=== PATIENT | female | born 1940 | race Two or more races ===

== ENCOUNTER 2024-05-13 17:17 | Inpatient (IN) | payer OTHER ==
[~2024-05-13] VITALS: Ht 165.1 cm; Wt 63.5 kg
[2024-05-13 17:23] VITALS: BP 138/60; PULSE 72; RESP 14; TEMP 97.8; O2SAT 97
[2024-05-13] MEDS ORDERED: cefTRIAXone 1,000 MG VIAL ONE (17:44)
[2024-05-13] MEDS: cefTRIAXone 1,000 MG in DEXT 5% MINI-BAG PLUS 50 ML IV ONE (18:12)
[2024-05-13 18:15] LABS: BILIRUBIN,URINE NEGATIVE (NEGATIVE); BLOOD, URINE NEGATIVE (NEGATIVE); COLOR,URINE YELLOW (YELLOW); LEUKOCYTE ESTERASE ,URINE 3+ (NEGATIVE); NITRITE, URINE POSITIVE (NEGATIVE); PROTEIN,URINE NEGATIVE (NEGATIVE); UGLUCOSE NEGATIVE (NEGATIVE); UROBILINOGEN,URINE 0.2 EU/dL (0.2 - 1)
[2024-05-13 18:16] LABS: BASOPHILS % (AUTO) 0.4 % (0.0-2.0); EOSINOPHILS # (AUTO) 0.1 K/uL (0-0.4); EOSINOPHILS % (AUTO) 1.1 % (0.0-4.0); HEMOGLOBIN 13.1 g/dL (12.0-16.0); LYMPHOCYTES # (AUTO) 2.1 K/uL (2.5-16.5); LYMPHOCYTES % (AUTO) 30.4 % (20.5-51.1); MEAN CORPUSCULAR HEMOGLOBIN 30 pg (27-31); MEAN CORPUSCULAR HGB CONC 34 g/dL (33-37); MEAN CORPUSCULAR VOLUME 90.2 fL (80-94); MONOCYTES # (AUTO) 0.5 K/uL (0.8-1.0); MONOCYTES % (AUTO) 7.1 % (1.7-9.3); NEUTROPHILS # (AUTO) 4.2 K/uL (1.8-7.7); PLATELET COUNT (AUTO) 249 K/uL (140-450); RED BLOOD CELL COUNT(AUTO) 4.32 MIL/uL (4.20-5.40); RED CELL DISTRIBUTION WIDTH 13.3 % (11.6-13.7); WHITE BLOOD COUNT (AUTO) 6.9 K/uL (4.8-10.8)
[2024-05-13 18:17] LABS: APPEARANCE,URINE HAZY (CLEAR)
[2024-05-13 18:40] LABS: ANION GAP 12.7 (8-16); CARBON DIOXIDE 26.7 mmol/L (21-32); CHLORIDE 103 mmol/L (98-107); CREATININE 1.5 mg/dL (0.6-1.3); GLUCOSE 219 mg/dL (74-106); POTASSIUM 4.4 mmol/L (3.5-5.1); SODIUM SERUM 138 mmol/L (136-145); UREA NITROGEN, BLOOD 30 mg/dL (7-18)
[2024-05-13 18:49] LABS: LACTIC ACID 1.4 mmol/L (0.4-2.0)
[2024-05-13 18:51] LABS: FLU A ANTIGEN negative (NEGATIVE); FLU B ANTIGEN NEGATIVE (NEGATIVE)
[2024-05-13 19:06] LABS: BACTERIA,URINE 4+ /HPF (None Seen); MUCUS,URINE 2+ /LPF (None Seen); RBC,URINE 0-5 /HPF (0-5); SQUAMOUS EPITHELIAL CELL,UR 4-10 (MOD) /LPF (0-3 (FEW)); WBC,URINE 16-25 (MOD) /HPF (0-5)
[2024-05-13] MEDS ORDERED: AMLO10TA PO (20:05)
[2024-05-13] MEDS ORDERED: SIMV-372 PO (20:05)
[2024-05-13] MEDS ORDERED: HYDR-1098 PO (20:05)
[2024-05-13] MEDS ORDERED: LOSA-272 PO (20:05)
[2024-05-13] MEDS ORDERED: XAR10 PO (20:05)
[2024-05-13] MEDS ORDERED: ESCI10TA PO (20:05)
[2024-05-13] MEDS ORDERED: SLIDE SUBQ (20:10)
[2024-05-13] MEDS ORDERED: INSU-1329 SC (20:10)
[2024-05-13] MEDS: DEXT 5% / NACL 0.9% 500 ML IV ONE (21:07)
[2024-05-13] MEDS ORDERED: ACETAMINOPHEN 325 MG TAB PO PRN (21:10)
[2024-05-13] MEDS ORDERED: ONDANSETRON 4 MG/2 ML VIAL IVP PRN (21:10)
[2024-05-13] MEDS ORDERED: POTASSIUM CHLORIDE 10 MEQ TABER PO PRN (21:10)
[2024-05-13] MEDS ORDERED: MAG SULF 2000 MG/WATER PREMIX 50 ML IV PRN (21:10)
[2024-05-13] MEDS: NACL 0.9% 1,000 ML IV SCH (21:15)
[2024-05-13] MEDS ORDERED: DEXTROSE 50% 50 ML SYR IVP PRN (21:15)
[2024-05-13 22:07] VITALS: PULSE 86; RESP 18; O2SAT 97
[2024-05-13 22:26] LABS: INR 0.98 (0.8-1.2); PARTIAL THROMBOPLASTIN TIME 27.2 secs (22-35.6); PROTHROMBIN TIME 10.3 secs (10.8-13.4)
[2024-05-13 23:23] LABS: CHOL/HDL RATIO 2.1 (1-4.5); FREE T4 (FREE THYROXINE) 1.07 ng/dL (0.76-1.46); PHOSPHORUS 3.5 mg/dL (2.5-4.9); THYROID STIMULATING HORMONE 2.34 uIU/mL (0.34-3.74)
[2024-05-14] VITALS: BP 140/56; PULSE 61; PULSE 65; RESP 18; TEMP 98; O2SAT 95
[2024-05-14 04:00] VITALS: BP 152/64; PULSE 59; PULSE 80; RESP 18; TEMP 97.6; O2SAT 96
[2024-05-14 06:55] LABS: BASOPHILS % (AUTO) 0.5 % (0.0-2.0); EOSINOPHILS # (AUTO) 0.1 K/uL (0-0.4); EOSINOPHILS % (AUTO) 2.7 % (0.0-4.0); HEMATOCRIT 36.2 % (36-48); HEMOGLOBIN 12.2 g/dL (12.0-16.0); LYMPHOCYTES # (AUTO) 1.4 K/uL (2.5-16.5); LYMPHOCYTES % (AUTO) 32.5 % (20.5-51.1); MEAN CORPUSCULAR HEMOGLOBIN 30 pg (27-31); MEAN CORPUSCULAR HGB CONC 34 g/dL (33-37); MEAN CORPUSCULAR VOLUME 89.7 fL (80-94); MONOCYTES # (AUTO) 0.5 K/uL (0.8-1.0); MONOCYTES % (AUTO) 10.2 % (1.7-9.3); NEUTROPHILS # (AUTO) 2.4 K/uL (1.8-7.7); NEUTROPHILS % (AUTO) 54.1 % (42.2-75.2); PLATELET COUNT (AUTO) 219 K/uL (140-450); RED BLOOD CELL COUNT(AUTO) 4.04 MIL/uL (4.20-5.40); RED CELL DISTRIBUTION WIDTH 13.3 % (11.6-13.7); WHITE BLOOD COUNT (AUTO) 4.4 K/uL (4.8-10.8)
[2024-05-14 07:24] LABS: ANION GAP 13.6 (8-16); CALCIUM 8.3 mg/dL (8.5-10.1); CARBON DIOXIDE 22.3 mmol/L (21-32); CHLORIDE 106 mmol/L (98-107); CREATININE 1.2 mg/dL (0.6-1.3); GLUCOSE 186 mg/dL (74-106); POTASSIUM 3.9 mmol/L (3.5-5.1); SODIUM SERUM 138 mmol/L (136-145); UREA NITROGEN, BLOOD 23 mg/dL (7-18)
[2024-05-14 07:30] LABS: MAGNESIUM 2.3 mg/dL (1.8-2.4); PHOSPHORUS 3.5 mg/dL (2.5-4.9)
[2024-05-14] MEDS: BLOOD GLUCOSE MONITORING 1 DEV DEV FS SCH (07:30)
[2024-05-14 08:00] VITALS: BP 150/60; PULSE 57; PULSE 64; PULSE 68; RESP 16; RESP 20; TEMP 97.4; O2SAT 98; O2SAT 99
[2024-05-14] MEDS: hydrALAZINE 25 MG TAB PO SCH (09:00)
[2024-05-14] MEDS: DOCUSATE SODIUM 100 MG GELCAP PO SCH (09:00)
[2024-05-14] MEDS: amLODIPine 5 MG TAB PO SCH (09:00)
[2024-05-14] MEDS: ESCITALOPRAM 20 MG TAB PO SCH (09:00)
[2024-05-14] MEDS: LOSARTAN 50 MG TAB PO SCH (09:00)
[2024-05-14] MEDS: PANTOPRAZOLE 40 MG INJ VIAL IVP SCH (09:46)
[2024-05-14] MEDS: INSULIN LISPRO SLIDING SCALE 100 UNITS/ML VIAL SUBQ PRN (09:47)
[2024-05-14 12:00] VITALS: BP 151/59; PULSE 56; RESP 16; TEMP 97.4; O2SAT 95
[2024-05-14] MEDS: RIVAROXABAN 10 MG TAB PO SCH (12:37)
[2024-05-14 16:00] VITALS: BP 142/66; PULSE 57; PULSE 60; RESP 19; TEMP 97.6; O2SAT 96
[2024-05-14] MEDS: RIVAROXABAN 10 MG TAB ONE (18:23)
[2024-05-14 20:00] VITALS: BP 131/63; PULSE 79; PULSE 81; RESP 17; RESP 20; TEMP 97.3; O2SAT 96; O2SAT 99
[2024-05-14] MEDS: SIMVASTATIN 20 MG TAB PO SCH (22:43)
[2024-05-15] VITALS (7 sets, daily range): BP systolic 122–159; BP diastolic 54–65; PULSE 55–89; RESP 16–19; TEMP 97–98; O2SAT 96–97
[2024-05-15] MEDS: cefTRIAXone 1,000 MG VIAL ONE (05:39)
[2024-05-15 08:00] LABS: BASOPHILS % (AUTO) 0.4 % (0.0-2.0); EOSINOPHILS # (AUTO) 0.1 K/uL (0-0.4); EOSINOPHILS % (AUTO) 1.6 % (0.0-4.0); HEMATOCRIT 36.1 % (36-48); HEMOGLOBIN 12.2 g/dL (12.0-16.0); LYMPHOCYTES # (AUTO) 1.5 K/uL (2.5-16.5); LYMPHOCYTES % (AUTO) 23.7 % (20.5-51.1); MEAN CORPUSCULAR HEMOGLOBIN 30 pg (27-31); MEAN CORPUSCULAR HGB CONC 34 g/dL (33-37); MEAN CORPUSCULAR VOLUME 89.7 fL (80-94); MONOCYTES # (AUTO) 0.3 K/uL (0.8-1.0); MONOCYTES % (AUTO) 5.5 % (1.7-9.3); NEUTROPHILS # (AUTO) 4.3 K/uL (1.8-7.7); NEUTROPHILS % (AUTO) 68.8 % (42.2-75.2); PLATELET COUNT (AUTO) 222 K/uL (140-450); RED BLOOD CELL COUNT(AUTO) 4.03 MIL/uL (4.20-5.40); RED CELL DISTRIBUTION WIDTH 13.2 % (11.6-13.7); WHITE BLOOD COUNT (AUTO) 6.3 K/uL (4.8-10.8)
[2024-05-15 08:17] LABS: PHOSPHORUS 3.5 mg/dL (2.5-4.9)
[2024-05-15 08:44] LABS: ANION GAP 11.8 (8-16); CALCIUM 8.2 mg/dL (8.5-10.1); CHLORIDE 106 mmol/L (98-107); CREATININE 1.2 mg/dL (0.6-1.3); GLUCOSE 142 mg/dL (74-106); POTASSIUM 3.8 mmol/L (3.5-5.1); SODIUM SERUM 138 mmol/L (136-145); UREA NITROGEN, BLOOD 19 mg/dL (7-18)
[2024-05-15] MEDS: RIVAROXABAN 10 MG TAB PO SCH (09:13)
[2024-05-15] MEDS: HYDROcodone/APAP 7.5/325 MG 1 TAB PO PRN (20:52)
[2024-05-16] VITALS: BP 122/52; PULSE 65; PULSE 73; RESP 18; TEMP 97; O2SAT 96
[2024-05-16 04:00] VITALS: BP 134/49; PULSE 72; RESP 18; TEMP 97; O2SAT 96
[2024-05-16 06:54] LABS: BASOPHILS % (AUTO) 0.8 % (0.0-2.0); EOSINOPHILS # (AUTO) 0.1 K/uL (0-0.4); EOSINOPHILS % (AUTO) 3.1 % (0.0-4.0); HEMATOCRIT 34.6 % (36-48); HEMOGLOBIN 11.8 g/dL (12.0-16.0); LYMPHOCYTES # (AUTO) 1.3 K/uL (2.5-16.5); LYMPHOCYTES % (AUTO) 34.2 % (20.5-51.1); MEAN CORPUSCULAR HEMOGLOBIN 31 pg (27-31); MEAN CORPUSCULAR HGB CONC 34 g/dL (33-37); MEAN CORPUSCULAR VOLUME 89.8 fL (80-94); MONOCYTES # (AUTO) 0.3 K/uL (0.8-1.0); MONOCYTES % (AUTO) 8.5 % (1.7-9.3); NEUTROPHILS # (AUTO) 2.1 K/uL (1.8-7.7); NEUTROPHILS % (AUTO) 53.4 % (42.2-75.2); PLATELET COUNT (AUTO) 204 K/uL (140-450); RED BLOOD CELL COUNT(AUTO) 3.86 MIL/uL (4.20-5.40); RED CELL DISTRIBUTION WIDTH 13.2 % (11.6-13.7); WHITE BLOOD COUNT (AUTO) 3.9 K/uL (4.8-10.8)
[2024-05-16 07:10] LABS: ANION GAP 13.3 (8-16); CALCIUM 8.3 mg/dL (8.5-10.1); CARBON DIOXIDE 24.6 mmol/L (21-32); CHLORIDE 108 mmol/L (98-107); CREATININE 1.2 mg/dL (0.6-1.3); GLUCOSE 152 mg/dL (74-106); POTASSIUM 3.9 mmol/L (3.5-5.1); SODIUM SERUM 142 mmol/L (136-145); UREA NITROGEN, BLOOD 21 mg/dL (7-18)
[2024-05-16 07:11] LABS: PHOSPHORUS 3.9 mg/dL (2.5-4.9)
[2024-05-16 08:00] VITALS: BP 131/53; PULSE 57; PULSE 59; RESP 16; RESP 20; TEMP 97.1; O2SAT 96; O2SAT 97
[2024-05-16] MEDS ORDERED: ROC2I IV (10:22)
== END 2024-05-16 16:30 | DRG 70 ==
LOC: EDBD 17:17 → MED 17:17 → MTU 20:38
DX: G93.41 Metabolic encephalopathy (principal); N17.0 Acute kidney failure with tubular necrosis; N39.0 Urinary tract infection, site not specified; Z20.822 Contact with and (suspected) exposure to COVID-19; E86.0 Dehydration; I10 Essential (primary) hypertension; E11.9 Type 2 diabetes mellitus without complications; E78.5 Hyperlipidemia, unspecified; Z79.899 Other long term (current) drug therapy; Z88.8 Allergy status to other drugs, medicaments and biological substances; Z86.73 Personal history of transient ischemic attack (TIA), and cerebral infarction without residual deficits
CPT/HCPCS: 36415; 71045; 80048; 81001; 82040; 82140; 82150; 82948; 83036; 83605; 83690; 83735; 83880; 84100; 84439; 84443; 84484; 85025; 85610; 85730; 87040; 87081; 87086; 87186; 92526; 93005; 93925; 93970; 96374; 97110; 97163-GP; 97530; 99285; J0696; J1815; J2470; J7060; Q0092